=== PATIENT | female | born 1975 | race Two or more races ===

== ENCOUNTER 2024-11-16 17:46 | Emergency (ER) | payer SELFPAY ==
[~2024-11-16] VITALS: Ht 157.5 cm; Wt 64.5 kg
--- NOTE | 2024-11-16 18:05 | ED.PDOC ---
Musculoskeletal HPI Comments 49 y.o female presents to the ED for a chief complaint of right shoulder dislocation associated with numbness and tingling sensation. Patient reports reaching over for something and shoulder dislocated spontaneously without force or trauma. Patient does mention previous dislocations to bilateral shoulders and has not gotten surgery. Patient had his shoulder dislocated numerous times in the past and she is usually able to relocate it herself at home. Vitals: Temp: 97.8 F HR: 92 BP: 139/83 RR: 20 SPO2: 98% RA Past medical history: Previous bilateral shoulder dislocations. Past surgical history: Denies HPI: Poor Historian. REVIEW OF SYSTEMS: CONSTITUTIONAL: Denies acute: fever, diaphoresis, chills, generalized weakness. HEAD: Denies acute: headache, photophobia Eyes: Denies acute: Double vision, vision loss, eye pain, eye discharge. EARS: Denies acute: tinnitus, hearing loss, ear discharge, ear pain, THROAT: Denies acute: sore throat, swelling, difficulty swallowing , pain with swallowing, change in voice. NECK: Denies acute: neck pain, neck swelling, stiff neck. HEART: Denies acute : chest pain, palpitations, LUNGS: Denies acute: SOB, wheezing, cough, hemoptysis ABDOMEN: Denies acute: abdominal pain, Nausea, Vomiting, diarrhea, melena , hematemesis, hematochezia SKIN: Denies acute: rash, redness, lesions, itchiness. EXTREMITIES: Denies acute: calf pain, weakness, Denies acute: Low back pain. Neuro: Denies acute: focal neurological deficit, motor or sensory focal neurological deficit, tremors, seizure like activity, confusion, dizziness, change in mental status, loss of bowel or bladder function, cauda equina like symptoms. : Denies acute: dysuria, hematuria, flank pain, increase in urinary frequency. PSYCH: Denies acute: hallucination, suicidal ideation, homicidal ideation. FEMALE: Denies acute: abnormal vaginal bleeding, foul odor, unusual discharge. PHYSICAL EXAM: General: ---mild to moderate-----acute distress, awake and alert. Head: normocephalic, atraumatic. Neck: supple, trachea is midline, no swelling. Throat: Normal phonation. Eyes:, no erythema, no purulent discharge, no proptosis, no icterus. Heart: regular rate, regular rhythm, no significant murmur appreciated. Lungs: no apparent respiratory distress, Able to speak in full sentences. No wheezing, no rhonchi, no crackles. No stridors Clear to auscultation bilaterally. Abdomen: non tender to palpation, non distended, soft, no guarding, no rebound, + bowel sounds. Neuro: Awake, Alert, oriented to name, self, situation, follows commands GCS=15. Speech is normal. Skin: no petechia, no purpura, no cyanosis, non-pale, not jaundice. Lower extremities: --no - Pitting edema no deformity, no focal swelling, no calf TTP. Makes eye contact. moves all four extremities. Evaluation of the area of complaint: Right shoulder appears to be dislocated. Patient radial pulses palpable. The affected extremity. Sensory and motor are present. Good director of entertainment muscle. Patient states having some numbness and tingling in her right upper extremity. Patient was placed on a sling. Awaiting x-ray. Face: no apparent facial droop. Ambulating in the ED independently. ED COURSE: Time Seen by MD: 17:55 Reviewed Notes: Nurses Notes, Allergies Allergies: Coded Allergies: NO KNOWN ALLERGIES (Unverified , 11/16/24) Information Source: Patient Mode of Arrival: Ambulatory Location: Right Past Medical History Past Medical History (Other): multiple shoulder dislocations Surgical History: Denies all surgeries ELEVATOR PILOT History: No Pertinent ELEVATOR PILOT History Family History Family History: Reviewed,noncontributory to illness Social History Smoker: Non-Smoker Alcohol: Denies ETOH Use Drugs: Denies Drug Use Lives In: Home Was a procedure done? Was a procedure done?: Yes Sedation Sedation?: No Informed consent obtained: Yes Reduction Indication: Dislocation Informed consent obtained: Yes Risks/benefits/alt described: Yes Notes Fentanyl 100 mics IV were used for pain control and for the procedure. Successful right shoulder reduction was performed. A sling was applied to the right upper extremity. Postreduction films shows appropriate alignment and anatomy. Patient was neurovascularly intact after the procedure. Radial pulses palpable. Good director of entertainment muscle. Differential Diagnosis EXT Differential Diagnosis: Deep Vein Thrombosis, Compartment Syndrome, Fracture, Sprain, Dislocation, DJD, Contusion, Strain, Septic, Neurovascular injury, Arthritis, Bursitis X-Ray, Labs, Meds, VS Vital Signs Date Time Temp Pulse Resp B/P (MAP) Pulse Ox O2 Delivery O2 Flow Rate FiO2 11/16/24 23:02 98.4 83 19 118/77 (91) 99 98.4 11/16/24 21:42 80 16 140/79 (99) 96 11/16/24 21:20 144/77 11/16/24 21:05 98.6 69 17 144/77 (99) 100 98.6 11/16/24 21:05 69 17 100 Room Air 11/16/24 17:53 97.8 92 20 139/83 (101) 98 97.8 Current Medications Medications (Trade) Dose Ordered Sig/Jonathon Route Start Time Stop Time Status Last Admin Fentanyl Citrate 100 mcg ONCE ONCE IV 11/16/24 19:30 11/16/24 19:31 DC 11/16/24 21:20 Sodium Chloride 500 ml @ 500 mls/hr Q1H ONCE IV 11/16/24 19:30 11/16/24 20:29 DC 11/16/24 21:08 Ketorolac Tromethamine (Toradol Injection) 30 mg ONCE ONCE IV 11/16/24 22:30 11/16/24 22:32 DC 11/16/24 22:49 [place] [address] Ph: [phone] DIAGNOSTIC IMAGING Diagnostic Imaging Report : [id number] Signed PATIENT: ALLYSON CARRILLO ACCT: [id number] UNIT: [id number] : 1975 LOC: ER ROOM / BED: / AGE / SEX: 49 / F ADM STATUS: REG ER SERVICE 23 ORDERING PHYSICIAN: LAUREN CORDOVA DO PROCEDURE(s): RSHD2 - R SHOULDER 2+ VIEW XRAY REASON: post reduction ORDER NUMBER(s): [id number], ACCESSION NUMBER(s): [id number] CLINICAL INDICATION: post reduction TECHNIQUE: 2 radiographic views of the right shoulder were obtained. Comparison: XY R SHOULDER 2+ VIEW XRAY on DOS: 11/16/24 FINDINGS/IMPRESSION: There is no evidence of acute fracture or dislocation. Satisfactory bony alignment. The visualized joint space is well maintained. The alignment is anatomical. There is no radiopaque foreign body. ATED BY: MARQUIS DUNCAN Jr., DO DICTATED DATE/TIME: 11/16/242200 SIGNED BY: MARQUIS DUNCAN Jr., DO SIGNED DATE/TIME: 11/16/242200 CC: [place] [address] Ph: [phone] DIAGNOSTIC IMAGING Diagnostic Imaging Report : [id number] Signed PATIENT: ALLYSON CARRILLO ACCT: [id number] UNIT: [id number] : 1975 LOC: ER ROOM / BED: / AGE / SEX: 49 / F ADM STATUS: REG ER SERVICE 54 ORDERING PHYSICIAN: LAUREN CORDOVA DO PROCEDURE(s): RSHD2 - R SHOULDER 2+ VIEW XRAY REASON: dislocation ORDER NUMBER(s): [id number], ACCESSION NUMBER(s): [id number] EXAM: XY R SHOULDER 2+ VIEW XRAY CLINICAL INDICATION: dislocation TECHNIQUE: XY R SHOULDER 2+ VIEW XRAY Comparison: None FINDINGS/IMPRESSION: Anterior /inferior dislocation of the right humeral head ATED BY: YECENIA SAGE MD DICTATED DATE/TIME: 11/16/241851 SIGNED BY: YECENIA SAGE MD SIGNED DATE/TIME: 11/16/241851 CC: Time of 1ST Reevaluation: 17:59 Reevaluation 1ST: Unchanged Time of 2ND Reevaluation: 19:21 (At this time I spoke with the charge nurse. There are no beds available at this time) Reevaluation 2ND: Unchanged Time of 3RD Reevaluation: 00:00 Reevaluation 3RD: Resolved Patient Education/Counseling: Diagnosis, Treatment Family Education/Counseling: No Family Present Comments Patient presented with the above HPI.---recurrent right shoulder dislocation- --workup was initiated. patient was found with the above mentioned diagnosis. the following medications were ordered: please refer to order lists of meds and tests obtained by myself Dr. Cordova. Patient ED course and VS have been stabilized. Patient has been reassessed in the ED and remained in a stable condition. Pertinent incidental findings were discussed with the patient and/or family. Patient/family voices understanding and is agreeable with plan. Patient has been observed in the ED adequate length of time to insure improvement/stability. Escalation of care considered: Consideration of escalation to observation or admission Successful reduction in the ED of a dislocated right shoulder was performed from 1st attempt. Right sling was applied. Patient was DISCHARGED home in a stable condition. All the reports of any imaging studies that were ordered by myself were reviewed by myself. Departure 1 Departure Time of Disposition: 22:15 Impression: Primary Impression: Recurrent dislocation, right shoulder Disposition: HOME / SELF CARE / HOMELESS Condition: Stable Additional Instructions: Additional instructions: You MUST follow-up with your primary care/family doctor in 1 to 2 days. If you are unable to see your primary care/family doctor, please return to our emergency room for re-assessment and re-evaluation in 1 to 2 days. Return to the emergency room here in our facility or to the nearest ER [facility] if your symptoms change or worsen. CONSULTATIONS: you MUST Follow-up for consultation as soon as possible with: -orthopedic doctor in 1-2 days. Please call for appointment. You MUST call the consultants office yourself to make an appointment. You may need to arrange that through your insurance and/or your primary/family doctor. If you are unable to see the economic consultant in 1 to 2 days, you must return to our emergency room (or any other ER of your choice) for re-assessment and re- evaluation. Adequate fluid hydration. Continue wearing your sling until evaluated by orthopedic doctor. Discharged With: Self Critical Care Note Critical Care Time?: No LAUREN CORDOVA DO Nov 16, 2024 18:05
--- NOTE | 2024-11-16 18:55 | DVH ---
EXAM: XY R SHOULDER 2+ VIEW XRAY CLINICAL INDICATION: dislocation TECHNIQUE: XY R SHOULDER 2+ VIEW XRAY Comparison: None FINDINGS/IMPRESSION: Anterior /inferior dislocation of the right humeral head
[2024-11-16] MEDS: SODIUM CHLORIDE 0.9% 500 ML IV ONE (21:08)
[2024-11-16] MEDS: fentaNYL CITRATE 100 MCG/2 ML VL IV ONE (21:20)
--- NOTE | 2024-11-16 22:04 | DVH ---
CLINICAL INDICATION: post reduction TECHNIQUE: 2 radiographic views of the right shoulder were obtained. Comparison: XY R SHOULDER 2+ VIEW XRAY on DOS: 11/16/24 FINDINGS/IMPRESSION: There is no evidence of acute fracture or dislocation. Satisfactory bony alignment. The visualized joint space is well maintained. The alignment is anatomical. There is no radiopaque foreign body.
[2024-11-16] MEDS: KETOROLAC TROMETH 60MG/2ML VIAL IV ONE (22:49)
[2024-11-16 23:02] VITALS: BP 118/77; PULSE 83; RESP 19; TEMP 98.4; O2SAT 99
== END 2024-11-16 23:08 | disposition home or self-care (01) ==
LOC: ER 17:51
DX: M24.411 Recurrent dislocation, right shoulder (principal)
CPT/HCPCS: 23650; 73030; 96361; 96374; 99285; J1885; J3010; J7040; 96360; 96372